=== PATIENT | male | born 1980 | race Caucasian/White ===

== ENCOUNTER 2019-12-16 17:46 | Emergency (ER) | payer MEDICARE, OTHER ==
[~2019-12-16] VITALS: Ht 182.9 cm; Wt 68.0 kg
[2019-12-16] MEDS ORDERED: ACETAMINOPHEN 325MG TABLET PO ONE (18:45)
[2019-12-16] MEDS ORDERED: SODIUM CHLORIDE 0.9% 1000ML BAG (SEPSIS BOLUS) IV ONE (19:15)
[2019-12-16] MEDS ORDERED: AZITHROMYCIN 500 MG in DEXT 5% WATER 250 ML IV ONE (19:15)
[2019-12-16] MEDS ORDERED: CEFTRIAXONE 1 G PREMIX 50 ML IV ONE (19:15)
[2019-12-16] MEDS ORDERED: ALBUTEROL 6.7GM HFA INHALER ORI ONE (20:00)
[2019-12-16 20:01] LABS: HEMATOCRIT. 37.4 % (42.0-52.0); MEAN CORPUSCULAR VOLUME 83.5 fL (80.0-94.0); MEAN PLATELET VOLUME 7.4 fl (7.4-10.4); PLATELET 262 x1000/uL (130-400); RED BLOOD CELL COUNT 4.49 mill/uL (4.7-6.1); RED CELL DISTRIBUTION WIDTH 13.6 % (11.6-14.6)
[2019-12-16 20:09] LABS: CHLORIDE 99 mEq/L (98-107)
[2019-12-16 20:12] LABS: ETHANOL BLOOD < 10 mg/dL
[2019-12-16] MEDS ORDERED: IBUPROFEN 600MG TABLET PO ONE (20:15)
[2019-12-16 20:17] LABS: CREATINE KINASE 70 IU/L (39-308)
[2019-12-16 20:19] LABS: PLATELET ESTIMATE NORMAL
[2019-12-16 21:28] LABS: CLARITY URINE CLEAR (CLEAR); COLOR URINE DARK YELLOW (YELLOW); KETONES URINE 2+ (NEGATIVE); LEUKOCYTE ESTERASE URINE TRACE (NEGATIVE); NITRITE URINE NEGATIVE (NEGATIVE); OCCULT BLOOD URINE 2+ (NEGATIVE); PROTEIN URINE 2+ (NEGATIVE); SPECIFIC GRAVITY URINE 1.036 (1.005-1.030)
[2019-12-16 21:55] LABS: *AMPHETAMINES SCREEN URINE NEGATIVE (NEGATIVE); *BARBITURATES SCREEN URINE NEGATIVE (NEGATIVE); *BENZODIAZEPINES SCREEN URINE NEGATIVE (NEGATIVE); *COCAINE SCREEN URINE NEGATIVE (NEGATIVE); CANNABINOID URINE SCREEN PRESUMTIVE POSITIVE (NEGATIVE); METHADONE URINE SCREEN NEGATIVE (NEGATIVE); OPIATES URINE SCREEN NEGATIVE (NEGATIVE); PHENCYCLIDINE URINE SCREEN NEGATIVE (NEGATIVE)
[2019-12-16 22:00] VITALS: BP 123/70
== END 2019-12-16 23:17 | disposition home or self-care (01) ==
LOC: ER 17:46
DX: Z20.828 Contact with and (suspected) exposure to other viral communicable diseases (principal); J18.9 Pneumonia, unspecified organism; I10 Essential (primary) hypertension
CPT/HCPCS: 36415; 71045; 80053; 80305; 80320; 81003; 82550; 83605; 83690; 85025; 87040; 87086; 87635; 94640; 96365; 96368; 99284; J0456; J0696; J7030; J7060; G0480